=== PATIENT | male | born 1950 | race Caucasian/White ===

== ENCOUNTER 2024-06-05 05:07 | Observation (INO) | payer MEDICARE, BC ==
[2024-06-03 10:38] LABS: BASOPHILS # (AUTO) 0.1 (0.0-0.1); BASOPHILS % 1.9 % (0.0-1.0); EOSINOPHILS # (AUTO) 0.7 (0.0-0.4); EOSINOPHILS % 11.5 % (0.0-6.0); HEMOGLOBIN 14.6 g/dL (14.0-18.0); LYMPHOCYTES # (AUTO) 2.1 (1.0-3.2); LYMPHOCYTES % 33.4 % (18.0-39.1); MEAN CORPUSCULAR HEMOGLOBIN 30.4 pg (28-32); MEAN CORPUSCULAR HGB CONC 33.2 g/dL (31-35); MEAN CORPUSCULAR VOLUME 91.5 fL (81-99); MONOCYTES % 15.1 % (4.4-11.3); NEUTROPHILS # (AUTO) 2.4 (2.1-6.9); NEUTROPHILS % 37.9 % (38.7-80.0); PLATELET COUNT 287 x10e3/uL (140-360); RED BLOOD COUNT 4.81 x10e6/uL (4.3-5.7); RED CELL DISTRIBUTION WIDTH 12.5 % (11.7-14.4); WHITE BLOOD COUNT 6.41 x10e3/uL (4.8-10.8)
[~2024-06-05] VITALS: Ht 200.7 cm; Wt 61.2 kg
[~2024-06-05 05:07] MED LIST: AMLODIPINE BESYL5 MG PO; CLOPIDOGREL75 MG PO; FLOMAX0.4 MG PO; MONTELUKAST SOD10 MG PO; NIACIN500 M2 PO
[2024-06-05] MEDS: LACTATED RINGER'S 1,000 ML ONE (05:50)
[2024-06-05] MEDS ORDERED: LIDOCAINE HCL 2% LOCAL INJ 5 ML SDV VIAL INJ ONE (06:41)
[2024-06-05] MEDS ORDERED: ROCURONIUM BROMIDE 1 ML IV ONE (06:41)
[2024-06-05] MEDS ORDERED: PROPOFOL IV EMULSION 10 MG/ML 20 ML VIAL ONE (06:42)
[2024-06-05] MEDS ORDERED: ACETAMINOPHEN 1000 MG/100 ML 100 ML IV ONE (06:42)
[2024-06-05] MEDS ORDERED: FENTANYL CITRATE/PF 100MCG/2 ML INJ ONE ×2 (06:42→07:44)
[2024-06-05] MEDS ORDERED: MIDAZOLAM HCL 2 MG/2 ML VIAL ONE (06:42)
[2024-06-05] MEDS ORDERED: LIDOCAINE HCL (LTA) 4 ML SOLN ONE (06:42)
[2024-06-05] MEDS ORDERED: ONDANSETRON HCL INJ 2MG/ML 2ML 2 MG/ML VIAL ONE (06:43)
[2024-06-05] MEDS ORDERED: PHENYLEPHRINE HCL 1% 10 MG/ML VIAL ONE (06:43)
[2024-06-05] MEDS ORDERED: SODIUM CHLORIDE 0.9% 100 ML ONE (06:43)
[2024-06-05] MEDS ORDERED: SUGAMMADEX SODIUM 200 MG/2 ML VIAL IV ONE (06:47)
[2024-06-05] MEDS ORDERED: SUCCINYLCHOLINE CHLORIDE 20 MG/ML 10ML VIAL ONE (07:04)
[2024-06-05] MEDS ORDERED: EPHEDRINE SULFATE INJ 50 MG/ML VIAL ONE (07:28)
[2024-06-05] MEDS ORDERED: GLYCOPYRROLATE INJ 0.2 MG/ML VIAL ONE (07:37)
[2024-06-05] MEDS ORDERED: DEXAMETHASONE SOD PHOS INJ 4 MG/ML SDV ONE ×2 (08:12)
[2024-06-05] MEDS ORDERED: HYDROMORPHONE 2MG/ML ONE (09:00)
[2024-06-05] MEDS ORDERED: ONDANSETRON HCL INJ 2MG/ML 2ML 2 MG/ML VIAL IV PRN (11:00)
[2024-06-05 11:15] VITALS: BP 123/85; PULSE 65; RESP 20; TEMP 96; O2SAT 96
[2024-06-05 11:45] VITALS: BP 113/79; PULSE 66; RESP 16; TEMP 96; O2SAT 95
[2024-06-05] MEDS ORDERED: SEVOFLURANE INHAL SOLN 250 ML PEN BTL ONE (11:52)
[2024-06-05 12:13] VITALS: BP 123/85; PULSE 65; RESP 20; TEMP 96; O2SAT 96
[2024-06-05] MEDS: HYDROCODONE/APAP 5MG-325MG TAB PO PRN (12:50)
[2024-06-05] MEDS: D5.45%NS/KCL 20MEQ 1,000 ML IV SCH (14:32)
[2024-06-05 16:24] VITALS: BP 123/85; PULSE 65; RESP 20; TEMP 96; O2SAT 96
[2024-06-05 20:00] VITALS: BP 116/80; PULSE 61; RESP 18; TEMP 97.6; O2SAT 96
[2024-06-05 21:00] VITALS: BP 116/80; PULSE 61; RESP 18; TEMP 97.6; O2SAT 96
[2024-06-06] VITALS: BP 116/72; PULSE 57; RESP 18; TEMP 97.8; O2SAT 97
[2024-06-06 04:00] VITALS: BP 131/92; PULSE 55; RESP 17; TEMP 97.7; O2SAT 100
[2024-06-06 07:40] VITALS: BP 126/80; PULSE 62; RESP 17; TEMP 97.7; O2SAT 96
[2024-06-06 08:05] VITALS: BP 126/80; PULSE 62; RESP 17; TEMP 97.7; O2SAT 96
[2024-06-06 08:13] VITALS: PULSE 62; RESP 18; O2SAT 96
[2024-06-06] MEDS ORDERED: AMLODIPINE BESYLATE 5 MG TAB PO SCH (09:00)
[2024-06-06] MEDS ORDERED: TAMSULOSIN HCL 0.4 MG CAP PO SCH (09:00)
== END 2024-06-06 09:43 | disposition home or self-care (01) ==
LOC: OR 05:07 → PACU V 10:22 → MED/SURG2 11:37
PROVIDERS: ADMIT Otolaryngology; ATTEND Otolaryngology
DX: K09.8 Other cysts of oral region, not elsewhere classified (principal); K11.8 Other diseases of salivary glands; I10 Essential (primary) hypertension; I65.22 Occlusion and stenosis of left carotid artery; J44.9 Chronic obstructive pulmonary disease, unspecified; J61 Pneumoconiosis due to asbestos and other mineral fibers; N40.0 Benign prostatic hyperplasia without lower urinary tract symptoms; F17.210 Nicotine dependence, cigarettes, uncomplicated; Z01.810 Encounter for preprocedural cardiovascular examination; Z01.812 Encounter for preprocedural laboratory examination; Z01.818 Encounter for other preprocedural examination; Z79.02 Long term (current) use of antithrombotics/antiplatelets; Z79.899 Other long term (current) drug therapy; Z95.5 Presence of coronary angioplasty implant and graft
CPT/HCPCS: 36415; 38724; 42420; 71046; 85025; 86850; 86900; 88304; 88331; 93005; 94799 ×2; C1713; G0378 ×2; J0131; J0330; J0690 ×2; J1100; J1171; J2003; J2250; J2371; J2405; J2704; J3010; J7050; J7121